=== PATIENT | female | born 1975 | race African-American/Black ===

== ENCOUNTER 2021-06-09 10:22 | Emergency (ER) | payer OTHER ==
[~2021-06-09] VITALS: Ht 160 cm; Wt 112.2 kg
[~2021-06-09 10:22] MED LIST: NO HOME MEDICATIONS
[2021-06-09] MEDS ORDERED: IV NORMAL SALINE 1000ML BAG 1,000 ML IV SCH (10:45)
--- NOTE | 2021-06-09 10:48 | PHYS DOC ---
Past Medical History Past Medical History: Asthma Past Surgical History: Hysterectomy Additional Past Surgical Histo: bladder susp. Smoking Status: Never Smoker Alcohol Use: Occasionally Drug Use: None General Adult HPI: HPI: Patient is a 45 year old female who presents with for the last 2 weeks she has had intermittent right sided sharp pain that worsens after she eats. She states she can also just drink a sip of water and get full fast. She states that that has been going on for a month. She states that she also gets nauseated but does not vomit. She states that she thought maybe she was constipated but she does have some constipation issues so she has been taking Metamucil and stool softene rs and she does not think that she is constipated at this time. She denies chest pain, shortness of air, fever, back pain, urinary symptoms, abnormal vaginal discharge, vomiting, diarrhea, headache, dizziness, focal weakness, numbness or tingling, injury. She has a history of hysterectomy, constipation, bladder suspension and asthma. She rates her pain at a 6 out of 10 at this t grisel. She states that the pain will get worse that she bends her if she is up and moving. Review of Systems: Review of Systems: Constitutional: Denies fever or chills. [] Eyes: Denies change in visual acuity. [] HENT: Denies nasal congestion or sore throat. [] Respiratory: Denies cough or shortness of breath. [] Cardiovascular: Denies chest pain or edema. [] GI: + abdominal pain, +nausea, denies vomiting, bloody stools or diarrhea. + Feeling full quickly [] : Denies dysuria. [] Musculoskeletal: Denies back pain or joint pain. [] Integument: Denies rash. [] Neurologic: Denies headache, focal weakness or sensory changes. [] Endocrine: Denies polyuria or polydipsia. [] Lymphatic: Denies swollen glands. [] Psychiatric: Denies depression or anxiety. [] Heart Score: C/O Chest Pain: No Allergies: Allergies: Allergies Coded Allergies Type Severity Reaction Last Updated Verified No Known Drug Allergies 12/04/14 No Physical Exam: PE: Constitutional: Well developed, well nourished, no acute distress, non-toxic appearance. [] HENT: Normocephalic, atraumatic, bilateral external ears normal, oropharynx moist, no oral exudates, nose normal. [] Eyes: PERRLA, EOMI, conjunctiva normal, no discharge. [] Neck: Normal range of motion, no tenderness, supple, no stridor. [] Cardiovascular:Heart rate regular rhythm, no murmur [] Lungs & Thorax: Bilateral breath sounds clear to auscultation [] Abdomen: Bowel sounds normal, soft, right mid quadrant tenderness, no masses, no pulsatile masses. [] Skin: Warm, dry, no erythema, no rash. [] Back: No tenderness, no CVA tenderness. [] Extremities: No tenderness, no cyanosis, no clubbing, ROM intact, no edema. [] Neurologic: Alert and oriented X 3, normal motor function, normal sensory function, no focal deficits noted. [] Psychologic: Affect normal, judgement normal, mood normal. [] EKG: EKG: [] Radiology/Procedures: Radiology/Procedures: [] Impression: [facility] [address] [place], [place] [id number] IMAGING REPORT Signed PATIENT: SPRING PAPPASCCOUNT: [id number] : 1975 LOCATION: ER AGE: 45 SEX: F EXAM STATUS: REG ER ORD. PHYSICIAN: AYAH ROMERO APRN REASON: Right sided sharp abdominal pain, nausea PROCEDURE: CT ABD PELV W/ IV CONTRST ONLY Exam Date: 06/09/2021 11:[address] ABDOMEN+PELVIS W Indication: Reason: Right sided sharp abdominal pain, nausea / Spl. Instructions: omni 300 75ml / History: . TECHNIQUE: CT examination of the abdomen and pelvis was performed following the administration of nonionic intravenous contrast. One or more of the following dose reduction techniques were utilized: *Automated exposure control (AEC) *Adjustment of mA and/or kV according to patient size *Use of iterative reconstruction technique *CT scan done according to ALARA, or ALARA/IMAGE GENTLY COMPARISON: June 02, 2016 FINDINGS: The visualized lung bases are clear. The liver, gallbladder, spleen, pancreas, adrenal glands and kidneys are normal. Urinary bladder is normal in appearance. There is no bowel obstruction or inflammation. The appendix is normal. Minimal atherosclerotic calcifications are seen. No lymphadenopathy or ascites is seen. Degenerative changes are seen in the spine. IMPRESSION: No evidence of acute intra-abdominal pathology. Electronically signed by: Cristino Loco MD (06/09/2021 12:19 PM) [id number] DICTATED and SIGNED BY: CRISTINO LOCO MD DATE: 06/09/21 [id number] 0 Course & Med Decision Making: Course & Med Decision Making Pertinent Labs and Imaging studies reviewed. (See chart for details) See HPI. Alert and oriented x4. Ambulatory steady gait. Speaks in full clear sentences. Right sided slight tenderness with palpation. There is no guarding or rigidity. Afebrile. Skin pink warm and dry. Blood work is unremarkable. CT shows no acute findings. Urinalysis does not show infection. Patient tolerates p.o. Vital signs within normal limits. She can follow-up with her primary care or I will give her the name of a GI doctor to follow-up with. [] Dragon Disclaimer: Dragon Disclaimer: This electronic medical record was generated, in whole or in part, using a voice recognition dictation system. Departure Departure Impression: Primary Impression: Abdominal pain Qualified Codes: R10.9 - Unspecified abdominal pain Disposition: HOME / SELF CARE / HOMELESS Condition: STABLE Referrals: Xena BUNN MD (PCP) Patient Instructions: Abdominal Pain (Nonspecific) Additional Instructions: Follow-up with primary care provider soon as possible. We will also refer you to a GI doctor. Take Tylenol or ibuprofen to help with your pain. If you begin vomiting, having diarrhea or fever you return to the emergency room. AYAH ROMERO CANCER GENETIC COUNSELOR Jun 09, 2021 10:48
[2021-06-09] MEDS ORDERED: ONDANSETRON PF 4 MG/2 ML VIAL. IVP ONE (11:00)
[2021-06-09 11:21] LABS: BILIRUBIN,URINE NEGATIVE (NEG); CLARITY,URINE CLEAR; COLOR,URINE YELLOW; NITRITE,URINE NEGATIVE (NEG); PH,URINE 5.5 (<5.0-8.0); PROTEIN,URINE NEGATIVE (NEG-TRACE); UROBILINOGEN,URINE 0.2 mg/dL (0.2 mg/dL)
[2021-06-09 11:26] LABS: BASO # 0.2 x10^3/uL (0.0-0.2); BASO % 1 % (0-3); EOS # 0.1 x10^3/uL (0.0-0.7); EOS % 1 % (0-3); HEMATOCRIT 33.5 % (36.0-47.0); HEMOGLOBIN 10.6 g/dL (12.0-15.5); LYMPH # 4.9 x10^3/uL (1.0-4.8); LYMPH % 38 % (24-48); MEAN CORPUSCULAR HEMOGLOBIN 20 pg (25-35); MEAN CORPUSCULAR HGB CONC 32 g/dL (31-37); MEAN CORPUSCULAR VOLUME 63 fL (79-100); MONO # 1.2 x10^3/uL (0.0-1.1); MONO % 10 % (0-9); NEUT # 6.4 x10^3/uL (1.8-7.7); NEUT % 50 % (31-73); PLATELET COUNT 298 x10^3/uL (140-400); RED BLOOD COUNT 5.31 x10^6/uL (3.50-5.40); RED CELL DISTRIBUTION WIDTH 15.4 % (11.5-14.5); WHITE BLOOD COUNT 12.8 x10^3/uL (4.0-11.0)
[2021-06-09 11:38] LABS: BACTERIA,URINE FEW /HPF (0-FEW); RBC,URINE 0 /HPF (0-2)
[2021-06-09 11:41] LABS: CALCIUM 8.7 mg/dL (8.5-10.1); CREATININE 0.9 mg/dL (0.6-1.0); GFR 81.2; POTASSIUM 4.2 mmol/L (3.5-5.1)
[2021-06-09] MEDS ORDERED: IOHEXOL 300 MG/ML 100ML VIAL. IV ONE (11:45)
[2021-06-09 11:47] LABS: TOTAL BILIRUBIN 0.4 mg/dL (0.2-1.0); TOTAL PROTEIN 7.1 g/dL (6.4-8.2)
[2021-06-09] MEDS ORDERED: CONTRAST GIVEN. MC PRN (12:00)
[2021-06-09 12:21] LABS: ALBUMIN 3.5 g/dL (3.4-5.0)
--- NOTE | 2021-06-09 12:21 | RAD ---
Exam Date: 06/09/2021 11:[address] ABDOMEN+PELVIS W Indication: Reason: Right sided sharp abdominal pain, nausea / Spl. Instructions: omni 300 75ml / His tory: . TECHNIQUE: CT examination of the abdomen and pelvis was performed following the administration of no nionic intravenous contrast. One or more of the following dose reduction techniques were utilized: *Automated exposure control (AEC) *Adjustment of mA and/or kV according to patient size *Use of iterative reconstruction technique *CT scan done according to ALARA, or ALARA/IMAGE GENTLY COMPARISON: June 02, 2016 FINDINGS: The visualized lung bases are clear. The liver, gallbladder, spleen, pancreas, adrenal glands and kidneys are normal. Urinary bladder is normal in appearance. There is no bowel obstruction or inflammation. The appendix is normal. Minimal atherosclerotic calcifications are seen. No lymphadenopathy or ascites is seen. Degenerative changes are seen in the spine. IMPRESSION: No evidence of acute intra-abdominal pathology. Electronically signed by: Aleks Loco MD (06/09/2021 12:19 PM) [id number]
[2021-06-09] MEDS ORDERED: KETOROLAC 30 MG/ML VIAL. IVP ONE (12:45)
[2021-06-09 13:01] VITALS: BP 143/64
[2021-06-09 13:01] LABS: ANISOCYTOSIS SLIGHT; PLT ESTIMATE ADEQUATE (ADEQUATE)
[2021-06-09 13:02] LABS: MICROCYTOSIS SLIGHT; OVALOCYTES FEW; POLYCHROMASIA PRESENT; TEAR DROP CELLS FEW
== END 2021-06-09 13:16 | disposition home or self-care (01) ==
LOC: ER 10:22
DX: R10.31 Right lower quadrant pain (principal); R10.11 Right upper quadrant pain; R11.0 Nausea; J45.909 Unspecified asthma, uncomplicated; Z90.710 Acquired absence of both cervix and uterus
CPT/HCPCS: 36415; 74177; 80053; 81001; 81025; 83690; 85025; 96361; 96374; 96375; 99285; J1885; J2405; J7030; Q9967

== ENCOUNTER → 2021-09-13 | Outpatient (CLI) | payer OTHER ==
--- NOTE | 2021-09-13 17:02 | KCIC ---
EXAM: XR LUMBAR SPINE 4+V 09/13/2021 2:55 PM CLINICAL INDICATION: Acute bilateral lower back pain with sciatica COMPARISON: CT abdomen pelvis 06/02/2016 TECHNIQUE: AP, lateral, right and left oblique, and coned-down lateral view of the lumbar spine FINDINGS: There is are 5 nonrib-bearing lumbar vertebral bodies. No acute fracture. There is 3 mm an terolisthesis of L4 on L5. Mild levoscoliosis of the lower lumbar spine. Mild disc space narrowing at L4-L5. Tiny anterior osteophytes throughout the lumbar spine. There is mild facet arthrosis at L4-L5 . Calcified granuloma in the left lung base. IMPRESSION: 1. No acute osseous abnormality. 2. Mild degenerative disc disease, greatest at L4-5. Electronically signed by: Rochelle Franco MD (09/13/2021 5:00 PM) [id number]
== END ==
LOC: KCIC 14:44
PROVIDERS: ATTEND Family Medicine
DX: M51.36 Other intervertebral disc degeneration, lumbar region (principal); J84.10 Pulmonary fibrosis, unspecified; M48.061 Spinal stenosis, lumbar region without neurogenic claudication; M43.16 Spondylolisthesis, lumbar region; M41.86 Other forms of scoliosis, lumbar region; M47.816 Spondylosis without myelopathy or radiculopathy, lumbar region
CPT/HCPCS: 72110

== ENCOUNTER → 2021-09-14 | Outpatient (CLI) | payer OTHER ==
--- NOTE | 2021-09-14 08:25 | RAD ---
EXAMINATION: US PELVIS W/TV, 09/14/2021 7:29 AM CLINICAL INDICATION: Pelvic pain TECHNIQUE: Grayscale, color and spectral Doppler ultrasound images of the pelvis via transabdominal a nd transvaginal approach. COMPARISON: CT abdomen pelvis 06/09/2021 FINDINGS: The uterus is surgically absent. The ovaries are not visualized. No adnexal mass. Trace free fluid, n onspecific. Urinary bladder is unremarkable. IMPRESSION: 1. Surgical changes of hysterectomy. 2. Ovaries are not visualized by ultrasound. 3. Trace free fluid, nonspecific. Electronically signed by: Rochelle Franco MD (09/14/2021 8:22 AM) [id number]
== END ==
LOC: US 06:56
PROVIDERS: ATTEND Family Medicine
DX: R10.2 Pelvic and perineal pain (principal); Z90.710 Acquired absence of both cervix and uterus
CPT/HCPCS: 76830; 76856

== ENCOUNTER 2021-12-31 05:59 | Day surgery (SDC) | payer OTHER ==
[~2021-12-31] VITALS: Ht 162.6 cm; Wt 107.0 kg
[2021-12-31] MEDS ORDERED: MORPHINE SULFATE 2 MG/ML INJ. IVP PRN (06:00)
[2021-12-31] MEDS ORDERED: HYDROmorphone 2 MG/ML INJ. IVP PRN (06:00)
[2021-12-31] MEDS ORDERED: fentaNYL PF VIAL 100 MCG/2 ML VIAL IVP PRN ×2 (06:00)
[2021-12-31] MEDS ORDERED: ACETAMINOPHEN 500 MG TABLET PO PRN (06:00)
[2021-12-31] MEDS ORDERED: PROCHLORPERAZINE 10 MG/2 ML VIAL. IVP PRN (06:00)
[2021-12-31 06:33] VITALS: BP 107/54
[2021-12-31] MEDS: IV RINGERS,LACTATED 1000ML 1,000 ML IV SCH ×3 (06:40→09:26)
[2021-12-31] MEDS ORDERED: ONDANSETRON PF 4 MG/2 ML VIAL. ONE (06:42)
[2021-12-31] MEDS ORDERED: DEXAMETHASONE SOD PHOS 4 MG/ML VIAL ONE (06:42)
[2021-12-31] MEDS ORDERED: PROPOFOL 10 MG/ML (20ML) VIAL. IV ONE (06:42)
[2021-12-31] MEDS ORDERED: fentaNYL PF VIAL 100 MCG/2 ML VIAL ONE ×2 (06:42→07:31)
[2021-12-31] MEDS ORDERED: ROCURONIUM 50 MG/5 ML VIAL. ONE ×2 (06:42→07:32)
[2021-12-31] MEDS ORDERED: SEVOFLURANE > 120 MINUTES. IH ONE (06:42)
[2021-12-31] MEDS ORDERED: MIDAZOLAM HCL/PF 2 MG/2 ML VIAL. ONE (06:43)
[2021-12-31] MEDS ORDERED: TOPI50TA8 PO (06:51)
[2021-12-31] MEDS ORDERED: ALBU2.5V8 INH (06:51)
[2021-12-31] MEDS ORDERED: CHLO25TA10 PO (06:52)
[2021-12-31] MEDS ORDERED: OMEP20CA16 PO (06:52)
[2021-12-31] MEDS ORDERED: TIZA-75 PO (06:53)
[2021-12-31] MEDS ORDERED: ALPR0.5T PO (06:53)
[2021-12-31] MEDS ORDERED: ZOLP12.56 PO (06:54)
[2021-12-31] MEDS ORDERED: IOHEXOL 300 MG/ML 50 ML VIAL. ONE (07:03)
[2021-12-31] MEDS ORDERED: SURGICEL HEMOSTAT 4X8 EACH. ONE (07:03)
[2021-12-31] MEDS ORDERED: BUPIVACAINE-EPI 0.25%-1:200000 MPF 30 ML VIAL. ONE (07:04)
[2021-12-31] MEDS ORDERED: NEOSTIGMINE METHYLSULFATE 5 MG/5 ML SYRINGE. ONE (07:32)
[2021-12-31] MEDS ORDERED: GLYCOPYRROLATE 1 MG/5 ML VIAL. ONE (07:32)
[2021-12-31] MEDS ORDERED: ePHEDrine PF IN SALINE 50 MG/10 ML SYRINGE. IV ONE (07:32)
--- NOTE | 2021-12-31 08:30 | PDOC4 ---
Operative Note Operative Note Date: December 31, 2021 at 8:27 AM Preoperative diagnosis: Chronic cholecystitis cholelithiasis Postoperative diagnosis: Same Procedure: Laparoscopic cholecystectomy with fluorescein cholangiography Surgeon: Willie Specimen: Gallbladder Dictation: Patient is a 46-year-old female with right upper quadrant abdominal pain ultrasound showing gallstones. Procedure laparoscopic cholecystectomy was explained to the patient detail risk benefits were also discussed including bleeding infection injury to intra-abdominal contents possible necessitating further open operations alternatives this procedure also discussed with the patient who seemed to understand and gave a verbal written consent to have procedure performed. Patient was taken to the operating room placed in supine position general anesthesia was initiated once patient was sleeping intubated her abdomen was prepped and draped usual sterile fashion using ChloraPrep. An area just above the umbilicus was injected quarter percent Marcaine with epinephrine incision was made Levlite scalpel and a varies needle was placed within the abdomen creating pneumoperitoneum once this was complete the millimeter port was placed and a 5 mm camera was placed within the abdomen which was inspected no other ab maladies were noted. 5 mm ports placed in the epigastrium and 5 mm ports placed in the right midabdomen and 5 mm ports placed in the right lateral abdomen all under direct visualization. The dome of the gallbladder is grasped retracted cephalad the infundibulum the gallbladder is grasped directed laterally exposing the triangle of adherent tissue the triangle were taken down with blunt dissection exposing the cystic duct and cystic artery fluorescing cholangiography was then performed which showed good dye within the cystic duct transversing to the common bile duct without any evidence of obstruction and anatomy was well visualized. The cystic duct was doubly clipped and transected as well as the cystic artery which was clipped and transected the gallbladder was taken off the liver with hook electrocautery placed in Endo Catch bag removed and the umbilicus the right upper quadrant is irrigated suctioned dry hemostasis deemed be appropriate the pneumoperitoneum was reduced all ports were removed the fascial defect at the umbilicus was closed with a [id number] 0 Vicryl suture and the skin was reapproximated all port sites for subcuticular Monocryl Mastisol Steri-Strips and island dressings were applied. Patient was awakened and extubated operating room taken to recovery in stable condition all sponge instrument needle counts listed as correct estimated blood loss 10 mL LUCIANA SOTOMAYOR MD December 31, 2021 08:30
[2021-12-31] MEDS ORDERED: OXYC-325 PO (08:32)
--- NOTE | 2021-12-31 08:33 | DISCH ---
DISCHARGE INSTRUCTIONS Condition on Discharge Condition on Discharge: Stable Activity After Discharge Activity Instructions for Disc: Avoid exertion Lifting Instructions after Dis: No heavy lifting Weight Bearing Status after Di: As tolerated Diet after Discharge Diet after Discharge: Low Fat Wound Incision Care Wound/Incision Care: No wound care needed Other wound/incision instructi: Rosana showsparkle in 24 hours Contacting the [facility] after DC Call your doctor for: If your condition worsens Follow-Up Follow up with: Dr. Sotomayor in 2-week Treatment/Equipment after DC Adaptive Equipment Issued: None LUCIANA SOTOMAYOR MD December 31, 2021 08:33
[2021-12-31] MEDS ORDERED: oxyCODONE/APAP 5/325 1 TAB TABLET PO ONE (09:00)
[2021-12-31 09:27] VITALS: BP 132/67
--- NOTE | 2022-01-03 17:08 | PATHOLOGY ---
[facility] Accession Number: [id number] . 01 Material submitted: . gallbladder - GALLBLADDER . 01 Clinical history: . CHRONIC CHOLECYSTITIS RYAN.... . 02 Diagnosis: Gallbladder, laparoscopic cholecystectomy: - Cholelithiasis. - Chronic and focal early mild acute cholecystitis. - Reactive changes of gallbladder neck lymph node. . ([facility]:mm; 01/03/2022) [facility] 01/03/2022 1615 Local . 02 Comment: There is no evidence of malignancy. . ([facility]:mml; 01/03/2022) . 02 Electronically signed: . Darryl Muir MD, Pathologist NPI- [id number] . 01 Gross description: . Fixative: Formalin Labeled: Gallbladder Specimen received: Intact cholecystectomy Dimensions: 11.2 x 4.0 x 3.2 cm Serosa: [place]-call with hemorrhagic stippling Lymph node: One possible identified measuring 0.5 cm in greatest dimension Mucosa: Green and velvety with numerous call-white eroded areas Average wall thickness: 0.2-0.3 cm Calculi: Yes, the gallbladder contains multiple multifaceted call-brown calculi measuring in aggregate 6.5 x 5.0 x 1.3 cm and ranging from 0.7-1.3 cm in greatest dimension. Abnormalities: Previously described A1- Sales And Marketing Administrator body, fundus, and the cystic duct margin. A2- Possible lymph node submitted without sectioning. ([facility]; 01/02/2022) [facility] 01/02/2022 0956 Local . 02 Pathologist provided ICD-10: K80.12 . 02 CPT . 215927 Specimen Comment: A courtesy copy of this report has been sent to [phone] Specimen Comment: Report sent to Performed at: 01 [facility] [address], [place] [id number] MD Wilfred Bucio MD Phone: [phone] Performed at: 02 [facility] [address] [place], [place] [id number] MD Darryl Muir MD Phone: [phone]
== END 2021-12-31 09:56 | disposition home or self-care (01) ==
LOC: SURG 05:59
PROVIDERS: ATTEND Surgery
DX: K80.12 Calculus of gallbladder with acute and chronic cholecystitis without obstruction (principal); I10 Essential (primary) hypertension; J45.909 Unspecified asthma, uncomplicated; E66.9 Obesity, unspecified; E11.9 Type 2 diabetes mellitus without complications; K21.9 Gastro-esophageal reflux disease without esophagitis; M19.90 Unspecified osteoarthritis, unspecified site; F41.9 Anxiety disorder, unspecified; Z90.710 Acquired absence of both cervix and uterus; Z98.51 Tubal ligation status; Z98.890 Other specified postprocedural states; Z72.89 Other problems related to lifestyle; Z91.040 Latex allergy status; Z79.899 Other long term (current) drug therapy
CPT/HCPCS: 47563; A4364; A4930; A6219; J0780; J1100; J2250; J2405; J2704; J2710; J3010; J3490; 88304; A4452; A4657; Q9967